=== PATIENT | female | born 1965 | race Caucasian/White ===

== ENCOUNTER 2016-07-29 13:07 | Emergency (ER) | payer OTHER ==
[2016-07-29 13:56] VITALS: BP 123/77; PULSE 69; TEMP 98.2; BMI 24.2
--- NOTE | 2016-07-29 14:23 | PDOC ---
History of Present Illness - General Chief Complaint: Pain Stated Complaint: EMPLOYEE, ELBOW PAIN Time Seen by Provider: 07/29/16 14:12 History Source: Patient Exam Limitations: No Limitations - History of Present Illness Initial Comments: CHIEF COMPLAINT: 50 y/o afebrile female employee here for follow up of right elbow pain after it was stuck in the elevator while at work. 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 She states she didn't want to come but her boss insisted she get checked out. She denies swelling, redness, decreased ROM. She does have some soreness over the outside of her elbow. Vital signs on arrival are within normal limits. REVIEW OF SYSTEMS: GENERAL/CONSTITUTIONAL: No fever/chills. No weakness. No weight change. MUSCULOSKELETAL: +right elbow pain. No neck or back pain. SKIN: No rash or easy bruising. NEUROLOGIC: No headache, vertigo, loss of consciousness, or loss of sensation. PHYSICAL EXAM: VITAL_SIGNS: within normal limits GENERAL_APPEARANCE: alert, cooperative, no obvious discomfort. MENTAL_STATUS: speech clear, oriented X 3, responds appropriately to questions. NEURO: motor intact and sensory intact in injured extremity. EXTREMITIES: Right arm, elbow, forearm and wrist without erythema, edema, deformities or crepitus. Full flexion, extension, supination and pronation of right elbow. Equal teaching dietitian strength b/l. TTP of lateral epicondyle of right elbow without deformities, crepitus or edema. SKIN: warm, dry, good color. Past History - Past Medical History Allergies/Adverse Reactions: Allergies Allergy/AdvReac Type Severity Reaction Status Date / Time No Known Drug Allergies Allergy Verified 07/29/16 13:56 Home Medications: Ambulatory Orders No Home Medications 02/11/12 Anemia: No Asthma: No Cancer: No Cardiac Disorders: No CVA: No COPD: No CHF: No Dementia: No Diabetes: No GI Disorders: Yes (IBS,GERD,HIATAL HERNIA,GASTRITIS,COLONIC ANGIODYSPLASIA) Disorders: No HTN: No Hypercholesterolemia: No Liver Disease: No Seizures: No Thyroid Disease: No - Surgical History Abdominal Surgery: No Appendectomy: No Cardiac Surgery: No Cholecystectomy: No Lung Surgery: No Neurologic Surgery: No Orthopedic Surgery: No - Psycho/Social/Smoking Cessation Hx Anxiety: No Suicidal Ideation: No Smoking Status: Yes Smoking History: Never smoked Have you smoked in the past 12 months: No Number of Cigarettes Smoked Daily: 1 Information on smoking cessation initiated: No 'Breaking Loose' booklet given: 02/11/12 Hx Alcohol Use: No Drug/Substance Use Hx: No Substance Use Type: Alcohol Hx Substance Use Treatment: No *Physical Exam - Vital Signs Last Vital Signs Temp Pulse Resp BP Pulse Ox 98.2 F 69 18 123/77 100 07/29/16 13:49 07/29/16 13:49 07/29/16 13:49 07/29/16 13:49 07/29/16 13:49 Medical Decision Making - Medical Decision Making A/P: 50 y/o female with right elbow pain s/p getting it stuck between elevator doors. No need for imaging at this time as the patient has full ROM without pain. Will give PO motrin and discharge back to work at the patient's request. Suggested she use ice for swelling and take motrin for pain if needed and return to the ER with any worsening or concerning symptoms. The patient verbalizes understanding of all instructions, has no further questions and is awaiting discharge. *DC/Admit/Observation/Transfer Diagnosis at time of Disposition: Right elbow pain - Referrals Referrals: Paolo Waggoner MD [Primary Care Provider] - - Patient Instructions Printed Discharge Instructions: DI for Elbow Pain Additional Instructions: Discharge Instructions: -Take Motrin if needed for pain or swelling -Apply ice to your elbow to help with pain and swelling -Return to the ER with any worsening or concerning symptoms. - Post Discharge Activity Work/School Note: Back to Work
[2016-07-29] MEDS ORDERED: IBUPROFEN 600 MG TABLET (FP) PO ONE ×2 (14:26)
== END 2016-07-29 14:34 | disposition home or self-care (01) ==
LOC: JERFT 13:07
DX: M25.521 Pain in right elbow (principal); W23.0XXA Caught, crushed, jammed, or pinched between moving objects, initial encounter; Y93.89 Activity, other specified; Y92.238 Other place in hospital as the place of occurrence of the external cause; Y99.0 Civilian activity done for income or pay
CPT/HCPCS: 99281-25

== ENCOUNTER 2019-10-03 08:32 | Emergency (ER) | payer OTHER ==
--- NOTE | 2019-10-03 08:43 | PDOC ---
Rapid Medical Evaluation Chief Complaint: Edema Time Seen by Provider: 10/03/19 08:38 Medical Evaluation: Allergies Allergy/AdvReac Type Severity Reaction Status Date / Time No Known Drug Allergies Allergy Verified 07/29/16 13:56 10/03/19 08:38 Pt presents for evaluation of L knee pain starting yesterday. She notes that the knee is red and edematous. Denies instrumentation. Admits to fever yesterday, taking Tylenol with little relief of symptoms. Gait intact Exam: L anterior pre patellar edema, with overlying erythema Orders: labs, x-ray Pt to proceed to the ER for further evaluation Discharge Disposition - Diagnosis Knee pain - Referrals Referrals: Paolo Waggoner MD [Primary Care Provider] - - Patient Instructions - Post Discharge Activity
[2019-10-03 08:48] VITALS: BP 134/89; PULSE 83; TEMP 98.8; BMI 25.8
--- NOTE | 2019-10-03 10:07 | PDOC ---
History of Present Illness - General Chief Complaint: Edema Stated Complaint: Edema Time Seen by Provider: 10/03/19 08:38 History Source: Patient Exam Limitations: No Limitations - History of Present Illness Initial Comments: 54 year old female with PMH juan's thyroiditis (on Synthroid) presented to ED for right knee pain/redness and fever starting yesterday. Pt reported her fever was 101.5F today, she took two Tylenol pills, which resolved her fever, then she reported to the ED. Pt denied injection drug use, trauma, puncture to the knee, procedures on the knee, hx diabetes, history of septic joint. ROS General: denied fever, chills, generalized weakness. HEENT: denied sore throat, rhinorrhea, ear pain. Cardiovascular: denied chest pain, palpitations, syncope, diaphoresis. Respiratory: denied shortness of breath, cough, sputum production, hemoptysis. Gastrointestinal: denied abdominal pain, nausea, vomiting, diarrhea, constipation, blood in stool. Genitourinary: denied dysuria, increased urinary frequency, hematuria, urinary incontinence, flank pain. Back: denied back pain. Musculoskeletal: denied joint pain, muscle pain, joint swelling. Neurological: denied headache, dizziness, numbness, tingling, weakness. Integumentary: denied rash, laceration, abrasion. Hematologic/Lymphatic: denied bruising or bleeding. PE Constitutional: Well-nourished, Well-developed, appearing stated age. HEENT: head is normocephalic, atraumatic. EOMI. PERRLA. Neck: supple. Full ROM. Cardiovascular: regular heart rhythm. Normal S1 and S2. no murmurs. no pericardial friction rub. Respiratory: clear to auscultation bilaterally. no crackles, rhonchi or wheezing. no stridor. Gastrointestinal: soft, flat, nontender. normal bowel sounds. no rebound, guarding, or masses. Extremities: peripheral pulses intact and equal. no lower extremity edema noted. Neurological: CN 2-12 grossly intact. moves all four extremities. Psych: awake, alert, oriented x3. follows commands. answers questions appropriately. Left knee: full flexion and extension right knee. 5x3 cm rectangular area of erythema, warmth to the anterior knee over the patella. Mild swelling. No tenderness. Mild [id number] pain with active of passive motion. Past History - Medical History Allergies/Adverse Reactions: Allergies Allergy/AdvReac Type Severity Reaction Status Date / Time No Known Drug Allergies Allergy Verified 07/29/16 13:56 Home Medications: Ambulatory Orders No Home Medications 02/11/12 Cephalexin [Keflex] 500 mg PO QID #28 capsule 10/03/19 Sulfamethoxazole/Trimethoprim [Bactrim Ds -] 1 tab PO BID #14 tablet 10/03/19 - Psycho-Social/Smoking History Smoking Status: Yes Smoking History: Never smoked Have you smoked in the past 12 months: No Number of Cigarettes Smoked Daily: 1 Information on smoking cessation initiated: No 'Breaking Loose' booklet given: 02/11/12 - Substance Abuse Hx (Audit-C & DAST Scrn) In the last yr the pt used illegal drug/Rx for NonMed reason: No Score: Yes response is considered Positive: 0 Screen Result (Positive result requires Nsg. DAST-10): Negative *Physical Exam - Vital Signs Last Vital Signs Temp Pulse Resp BP Pulse Ox 98.8 F 83 16 134/89 99 10/03/19 08:35 10/03/19 08:35 10/03/19 08:35 10/03/19 08:35 10/03/19 08:35 ED Treatment Course - LABORATORY CBC & Chemistry Diagram: 10/03/19 09:25 10/03/19 09:25 Medical Decision Making - Medical Decision Making 54 year old female with above PMH presented to ED for left knee redness/swelling associated with Fever 101.5F since yesterday. Initial Vital Signs Temp Pulse Resp BP Pulse Ox 98.8 F 83 16 134/89 99 10/03/19 08:35 10/03/19 08:35 10/03/19 08:35 10/03/19 08:35 10/03/19 08:35 Afebrile. No tachycardia. No tachypnea. No hypotension. No hypoxia on room air. XR left knee reports soft tissue swelling, no fracture, no dislocation, no free air. 10/03/19 11:40 Laboratory Last Values WBC 5.8 K/mm3 (4.0-10.0) 10/03/19 09:25 RBC 4.50 M/mm3 (3.60-5.2) 10/03/19 09:25 Hgb 13.5 GM/dL (10.7-15.3) 10/03/19 09:25 Hct 40.2 % (32.4-45.2) 10/03/19 09:25 MCV 89.2 fl (80-96) 10/03/19 09:25 MCH 30.0 pg (25.7-33.7) 10/03/19 09:25 MCHC 33.6 g/dl (32.0-36.0) 10/03/19 09:25 RDW 13.6 % (11.6-15.6) 10/03/19 09:25 Plt Count 185 K/MM3 (134-434) 10/03/19 09:25 MPV 9.6 fl (7.5-11.1) D 10/03/19 09:25 Absolute Neuts (auto) 3.9 K/mm3 (1.5-8.0) 10/03/19 09:25 Neutrophils % 67.7 % (42.8-82.8) D 10/03/19 09:25 Lymphocytes % 19.4 % (8-40) D 10/03/19 09:25 Monocytes % 9.2 % (3.8-10.2) 10/03/19 09:25 Eosinophils % 3.0 % (0-4.5) 10/03/19 09:25 Basophils % 0.7 % (0-2.0) 10/03/19 09:25 Nucleated RBC % 0 % (0-0) 10/03/19 09:25 Sodium 140 mmol/L (136-145) 10/03/19 09:25 Potassium 3.8 mmol/L (3.5-5.1) 10/03/19 09:25 Chloride 105 mmol/L (98-107) 10/03/19 09:25 Carbon Dioxide 30 mmol/L (21-32) 10/03/19 09:25 Anion Gap 5 MMOL/L (8-16) L 10/03/19 09:25 BUN 15.4 mg/dL (7-18) 10/03/19 09:25 Creatinine 0.8 mg/dL (0.55-1.3) 10/03/19 09:25 Est GFR (CKD-EPI)AfAm 96.87 10/03/19 09:25 Est GFR (CKD-EPI)NonAf 83.58 10/03/19 09:25 Random Glucose 111 mg/dL (74-106) H 10/03/19 09:25 Calcium 9.4 mg/dL (8.5-10.1) 10/03/19 09:25 Total Bilirubin 1.6 mg/dL (0.2-1) H 10/03/19 09:25 AST 14 U/L (15-37) L 10/03/19 09:25 ALT 17 U/L (13-61) 10/03/19 09:25 Alkaline Phosphatase 71 U/L (45-117) 10/03/19 09:25 C-Reactive Protein 2.1 MG/DL (0.00-0.3) H 10/03/19 09:25 Total Protein 7.4 g/dl (6.4-8.2) 10/03/19 09:25 Albumin 3.8 g/dl (3.4-5.0) 10/03/19 09:25 No leukocytosis. No anemia. CRP elevated. Suspect patellar bursitis vs infected bursitits vs septic joint vs inflammatory causes. Will not tap knee, as overlying cellulitis is present. Dr. Wick, pt's Ortho, paged for recs. 10/03/19 12:19 Dr. Ronquillo spoke with Dr. Wick, who recommended Keflex + Bactrim, ortho follow up tomorrow. Pt given instructions. Pt expressed understanding. Pt discharged, agreed with plan for care. Discharge - Discharge Information Problems reviewed: Yes Clinical Impression/Diagnosis: Knee pain Condition: Stable Disposition: HOME - Admission No - Additional Discharge Information Prescriptions: Sulfamethoxazole/Trimethoprim [Bactrim Ds -] 1 tab PO BID #14 tablet Cephalexin [Keflex] 500 mg PO QID #28 capsule - Follow up/Referral Referrals: Paolo Waggoner MD [Primary Care Provider] - Renzo Wick MD [Staff Physician] - - Patient Discharge Instructions Patient Printed Discharge Instructions: DI for Bursitis, DI for Knee Pain Additional Instructions: Follow up with your Orthopedic doctor, Dr. Wick, tomorrow afternoon. Your care is not complete until you followup. Take all medications as prescribed. Take Tylenol 1000 mg every 8 hours as needed for Fever/Pain. Buy over the counter. Do not EVER take more than 4000 mg of Tylenol in a 24 hour period, as this is toxic. Drink lots of water. Return to the ER for fever >3 days, increasing pain, increasing swelling, increasing redness, inability to bear weight or to move your knee, chest pain, shortness of breath, vomiting, lightheadedness or any other new, worsening or concerning symptoms. - Post Discharge Activity Work/Back to School Note: Back to Work
[2019-10-03 10:13] LABS: BASO % 0.7 % (0-2.0); HEMATOCRIT 40.2 % (32.4-45.2); HEMOGLOBIN 13.5 GM/dL (10.7-15.3); LYMPH % 19.4 % (8-40); MCHC 33.6 g/dl (32.0-36.0); MEAN CELL VOLUME 89.2 fl (80-96); MEAN PLT VOLUME 9.6 fl (7.5-11.1); MONO % 9.2 % (3.8-10.2); NEUT % 67.7 % (42.8-82.8); PLATELET COUNT 185 K/MM3 (134-434); RDW 13.6 % (11.6-15.6); WHITE BLOOD COUNT 5.8 K/mm3 (4.0-10.0)
[2019-10-03 10:43] LABS: ALBUMIN 3.8 g/dl (3.4-5.0); BILIRUBIN,TOTAL 1.6 mg/dL (0.2-1); BLOOD UREA NITROGEN 15.4 mg/dL (7-18); CALCIUM 9.4 mg/dL (8.5-10.1); CREATININE 0.8 mg/dL (0.55-1.3); POTASSIUM 3.8 mmol/L (3.5-5.1); TOT PROT 7.4 g/dl (6.4-8.2)
--- NOTE | 2019-10-03 12:26 | PDOC ---
Attending Attestation - Resident Resident Name: Stacie Monteiro - ED Attending Attestation I have performed the following: I have examined & evaluated the patient, The case was reviewed & discussed with the resident, I agree w/resident's findings & plan, Exceptions are as noted - HPI HPI: 10/03/19 12:24 54 years old presents to the ED with swelling and redness over her left knee Fever yesterday 101 Pain is worse with movement alleviated by rest - Physicial Exam PE: 10/03/19 12:24 Vitals: Triage Vital signs reviewed General Appearance: No acute distress, well nourished well developed, Head: Atraumatic, Extremities: Pre-patella bursitis with superimposed redness over the inflamed patella, no pain with passive range of motion only with active range of motion no lymphangitic spread Septic bursitis over the left patella bursa skin: Warm and dry, Neuro: AOX3; cranial Nerves 2-12 grossly intact, strength intact to all extremities, sensation intact to all extremities, gait normal Psych: Normal mood, normal affect - Medical Decision Making 10/03/19 12:25 Septic bursitis well-appearing no apparent distress will start patient on antibiotics discussed case with patient's orthopedist he can see patient tomorrow the next day very strict return instructions discussed with patient Findings, need for follow-up and strict return instructions discussed with patient. Discharge - Discharge Information Problems reviewed: Yes Clinical Impression/Diagnosis: Knee pain Qualifiers: Chronicity: acute Laterality: left Qualified Code(s): M25.562 - Pain in left knee Condition: Stable Disposition: HOME - Additional Discharge Information Prescriptions: Sulfamethoxazole/Trimethoprim [Bactrim Ds -] 1 tab PO BID #14 tablet Cephalexin [Keflex] 500 mg PO QID #28 capsule - Follow up/Referral Referrals: Paolo Waggoner MD [Primary Care Provider] - Renzo Wick MD [Staff Physician] - - Patient Discharge Instructions Patient Printed Discharge Instructions: DI for Bursitis, DI for Knee Pain Additional Instructions: Follow up with your Orthopedic doctor, Dr. Wick, tomorrow afternoon. Your care is not complete until you followup. Take all medications as prescribed. Take Tylenol 1000 mg every 8 hours as needed for Fever/Pain. Buy over the counter. Do not EVER take more than 4000 mg of Tylenol in a 24 hour period, as this is toxic. Drink lots of water. Return to the ER for fever >3 days, increasing pain, increasing swelling, increasing redness, inability to bear weight or to move your knee, chest pain, shortness of breath, vomiting, lightheadedness or any other new, worsening or concerning symptoms. - Post Discharge Activity Work/Back to School Note: Back to Work
[2019-10-03 13:40] LABS: ERYTHROCYTE SEDIMENTATION RATE 17 mm/hr (0-30)
== END 2019-10-03 12:28 | disposition home or self-care (01) ==
LOC: JER 08:32
DX: M25.562 Pain in left knee (principal)
CPT/HCPCS: 36415; 73562-TC-LT-FY; 80053; 85025; 85651; 86140; 99284-25

== ENCOUNTER 2020-06-15 04:51 | Day surgery (SDC) | payer OTHER ==
[2020-06-14 10:07] VITALS: BMI 25.8
[2020-06-15 11:16] VITALS: BP 111/76; PULSE 67; TEMP 97.5
== END 2020-06-15 11:45 | disposition home or self-care (01) ==
LOC: JASU-ENDO 04:51
PROVIDERS: ATTEND Internal Medicine Gastroenterology
PROC: 0DB98ZX Excision of Duodenum, Via Natural or Artificial Opening Endoscopic, Diagnostic (ICD-10-PCS; 2020-06-15)
PROC: 0DB78ZX Excision of Stomach, Pylorus, Via Natural or Artificial Opening Endoscopic, Diagnostic (ICD-10-PCS; 2020-06-15)
PROC: 0DBN8ZX Excision of Sigmoid Colon, Via Natural or Artificial Opening Endoscopic, Diagnostic (ICD-10-PCS; principal; 2020-06-15 09:00)
DX: Z12.11 Encounter for screening for malignant neoplasm of colon (principal); K29.70 Gastritis, unspecified, without bleeding; K55.20 Angiodysplasia of colon without hemorrhage; K60.4 Rectal fistula; K63.5 Polyp of colon; K64.8 Other hemorrhoids; K59.00 Constipation, unspecified; Z80.0 Family history of malignant neoplasm of digestive organs; R10.13 Epigastric pain; K62.5 Hemorrhage of anus and rectum
CPT/HCPCS: 88305-TC; 88342-TC